=== PATIENT | male | born 1945 | race Caucasian/White ===

== ENCOUNTER 2020-09-22 08:11 | Emergency (ER) | payer MEDICARE, MEDICAID ==
--- NOTE | 2020-09-22 10:24 | EDM.PDOC ---
ED HPI GENERAL MEDICAL PROBLEM - General Chief Complaint: Respiratory Problem Stated Complaint: +COVID Time Seen by Provider: 09/22/20 09:37 Source of Information: Reports: Patient, RN History Limitations: Reports: No Limitations - History of Present Illness INITIAL COMMENTS - FREE TEXT/NARRATIVE: Pt here from [facility] to evaluate for hypoxia. Pt is day 10 post COVID. He was started on dexamethasone at the [facility]. He refused to leave the oxygen on at the home. He was sent her for evaluation as he continues to be a code 1. His saturations were reported to be in the high 70-low 80's without oxygen on. He does report SOB without it but states that he feels better with it on. PT is alert and did recognize this provider by name when I entered the room. He admits that he does not like the oxygen on and does not like anything touching his face. Denies nausea or diarrhea. States that his appetite has been down. Occasional cough but he states that it is nonproductive. Onset: Gradual Location: Reports: Chest Worsens with: Reports: Movement - Related Data Allergies Allergy/AdvReac Type Severity Reaction Status Date / Time memantine [From Namenda] Allergy Unknown Other Verified 09/22/20 10:27 Home Meds: Home Meds Acetaminophen 650 mg PO Q4HR PRN 09/22/20 [History] Carboxymethylcellulose Sodium [Artificial Tears] 1 drop OP BID 09/22/20 [History] Cholecalciferol (Vitamin D3) [Vitamin D3] 1,000 units PO DAILY 09/22/20 [History] FLUoxetine [PROzac] 60 mg PO DAILY 09/22/20 [History] Gabapentin [Neurontin] 300 mg PO TID 09/22/20 [History] Galantamine [Razadyne] 4 mg PO BID 09/22/20 [History] Loratadine [Claritin] 10 mg PO DAILY 09/22/20 [History] Mag Hydrox/Aluminum Hyd/Simeth [Mylanta Maximum Strength Liq] 10 - 20 ml PO DAILY PRN 09/22/20 [History] Multivitamin [Multivitamins] 1 tab PO DAILY 09/22/20 [History] Nystatin [Nystatin Crm] 15 gm TOP DAILY 09/22/20 [History] OLANZapine [ZyPREXA] 10 mg PO DAILY 09/22/20 [History] Sennosides/Docusate Sodium [Docusate Sodium-Sennosides Tab] 1 each PO DAILY 09/22/20 [History] Tamsulosin HCl [Flomax] 0.4 mg PO DAILY 09/22/20 [History] Triamcinolone Acetonide [Triamcinolone Acetonide 0.1% Crm] 1 applic TOP DAILY 09/22/20 [History] dexAMETHasone [Dexamethasone] 6 mg PO DAILY 09/22/20 [History] diphenhydrAMINE/Zinc Acetate [Benadryl Itch Stopping Crm] 1 applic TP DAILY 09/22/20 [History] Past Medical History - Infectious Disease History Infectious Disease History: Reports: MRSA Social & Family History - Caffeine Use Caffeine Use: Reports: Coffee - Recreational Drug Use Recreational Drug Use: No - Living Situation & Occupation Living situation: Reports: Extended Care Facility Occupation: Retired ED ROS GENERAL - Review of Systems Review Of Systems: See Below Constitutional: Reports: Weakness, Decreased Appetite. Denies: Fever, Chills HEENT: Reports: No Symptoms Respiratory: Reports: Shortness of Breath, Cough. Denies: Sputum Cardiovascular: Reports: No Symptoms GI/Abdominal: Denies: Abdominal Pain, Diarrhea, Nausea Musculoskeletal: Reports: No Symptoms Skin: Reports: No Symptoms Neurological: Denies: Confusion Psychiatric: Denies: Anxiety ED EXAM, GENERAL - Physical Exam Exam: See Below Exam Limited By: No Limitations General Appearance: Alert, WD/WN, Mild Distress Ears: Normal External Exam, Normal Canal Throat/Mouth: Normal Inspection, Normal Oropharynx, No Airway Compromise Head: Atraumatic, Normocephalic Neck: Normal Inspection, Supple, Non-Tender Respiratory/Chest: Decreased Breath Sounds (decreased to bases bilaterally. no rales noted at this time. ). No: Wheezing Cardiovascular: Regular Rate, Rhythm, No Edema GI/Abdominal: Normal Bowel Sounds, Soft, Non-Tender Back Exam: Normal Inspection Extremities: Normal Inspection, No Pedal Edema, Normal Capillary Refill Neurological: Alert, Oriented Skin Exam: Warm, Dry, Intact Course - Vital Signs Last Recorded V/S: Last Vital Signs Temp 97.3 F 09/22/20 09:20 Pulse 77 09/22/20 09:47 Resp 38 H 09/22/20 09:47 BP 98/80 09/22/20 09:47 Pulse Ox 91 L 09/22/20 09:47 - Orders/Labs/Meds Orders: Active Orders 24 hr Category Date Time Status Chest 2V [CR] Stat Exams 09/22/20 08:54 Taken Labs: Laboratory Tests 09/22/20 09/22/20 09/22/20 Range/Units 09:11 09:11 09:11 WBC 7.3 (5.0-10.0) 10^3/uL RBC 4.38 L (4.50-6.00) 10^6/uL Hgb 13.8 L (14.0-18.0) g/dL Hct 40.1 (40.0-54.0) % MCV 91.6 (82.0-94.0) fL MCH 31.5 (27.0-32.0) pg MCHC 34.4 (33.0-38.0) g/dL RDW Coeff of Rogelio 13.3 (11.0-15.0) % Plt Count 250 (150-400) 10^3/uL Neut % (Auto) 84.3 (35-85) % Lymph % (Auto) 7.7 L (10-55) % Doddridge % (Auto) 7.8 (0-16) % Eos % (Auto) 0.1 (0-5) % Baso % (Auto) 0.1 (0-3) % Neut # (Auto) 6.16 (1.80-7.00) 10^3/uL Lymph # (Auto) 0.56 L (1.00-4.80) 10^3/uL Dod[place]idge # (Auto) 0.57 (0.00-0.80) 10^3/uL Eos # (Auto) 0.01 (0.00-0.45) 10^3/uL Baso # (Auto) 0.01 10^3/uL PT 10.9 (9.7-12.3) SEC INR 1.08 (0.92-1.18) D-Dimer, Quantitative 1.33 H (0.00-0.50) Sodium 140 (136-145) mEq/L Potassium 4.2 (3.5-5.0) mEq/L Chloride 104 (98-106) mEq/L Carbon Dioxide 23 (21-32) mmol/L BUN 48 H D (7-18) mg/dL Creatinine 1.7 H (0.7-1.3) mg/dL Est Cr Clr Drug Dosing 41.84 mL/min Estimated GFR (MDRD) 40 L (>=60) mL/min Glucose 107 H (75-99) mg/dL Lactic Acid (0.4-2.0) mmol/L Calcium 8.4 (8.4-10.1) mg/dL Total Bilirubin 0.6 (0.0-1.0) mg/dL AST 54 H (15-37) U/L ALT 34 (12-78) U/L Alkaline Phosphatase 77 (46-116) U/L Creatine Kinase 310 H (35-232) U/L Troponin I 0.025 (0.00-0.06) ng/mL NT-Pro-B Natriuret Pep 968 (0-1000) pg/mL Total Protein 7.4 (6.4-8.2) g/dL Albumin 2.6 L (3.4-5.0) g/dL 09/22/20 Range/Units 09:11 WBC (5.0-10.0) 10^3/uL RBC (4.50-6.00) 10^6/uL Hgb (14.0-18.0) g/dL Hct (40.0-54.0) % MCV (82.0-94.0) fL MCH (27.0-32.0) pg MCHC (33.0-38.0) g/dL RDW Coeff of Rogelio (11.0-15.0) % Plt Count (150-400) 10^3/uL Neut % (Auto) (35-85) % Lymph % (Auto) (10-55) % Doddridge % (Auto) (0-16) % Eos % (Auto) (0-5) % Baso % (Auto) (0-3) % Neut # (Auto) (1.80-7.00) 10^3/uL Lymph # (Auto) (1.00-4.80) 10^3/uL Doddridge # (Auto) (0.00-0.80) 10^3/uL Eos # (Auto) (0.00-0.45) 10^3/uL Baso # (Auto) 10^3/uL PT (9.7-12.3) SEC INR (0.92-1.18) D-Dimer, Quantitative (0.00-0.50) Sodium (136-145) mEq/L Potassium (3.5-5.0) mEq/L Chloride (98-106) mEq/L Carbon Dioxide (21-32) mmol/L BUN (7-18) mg/dL Creatinine (0.7-1.3) mg/dL Est Cr Clr Drug Dosing mL/min Estimated GFR (MDRD) (>=60) mL/min Glucose (75-99) mg/dL Lactic Acid 1.1 (0.4-2.0) mmol/L Calcium (8.4-10.1) mg/dL Total Bilirubin (0.0-1.0) mg/dL AST (15-37) U/L ALT (12-78) U/L Alkaline Phosphatase (46-116) U/L Creatine Kinase (35-232) U/L Troponin I (0.00-0.06) ng/mL NT-Pro-B Natriuret Pep (0-1000) pg/mL Total Protein (6.4-8.2) g/dL Albumin (3.4-5.0) g/dL - Re-Assessments/Exams Free Text/Narrative Re-Assessment/Exam: 09/22/[address] Sharan-Dr. Etienne discussed pt with Bob at the [facility]. Discussed that we do not have bed capacity at this time to admit the pt and that he would be able to get oxygen at the [facility] and monitored there. He has been started on dexamethasone and no other treatment is recommended at this time as he is over 10 days positive. Will transfer back to the [facility] on 15 liter NR. Departure - Departure Time of Disposition: 10:25 Disposition: Home, Self-Care 01 Condition: Fair Clinical Impression: COVID-19, Hypoxia - Discharge Information *PRESCRIPTION DRUG MONITORING PROGRAM REVIEWED*: Not Applicable *COPY OF PRESCRIPTION DRUG MONITORING REPORT IN PATIENT SEVERIANO: Not Applicable Instructions: COVID-19 Frequently Asked Questions Referrals: Samantha Rawls PA-C [Primary Care Provider] - Forms: ED Department Discharge Additional Instructions: Must wear oxygen to keep sats above 90%. Currently on non rebreather at 15 liters. Can wean oxygen down as tolerated. continue the dexamethasone that was started yesterday PUSH oral fluids as much as possible diet as tolerated Sepsis Event Note (ED) - Evaluation Sepsis Screening Result: No Definite Risk - Problem List & Annotations (1) COVID-19 SNOMED Code(s): 627381159 Code(s): U07.1 - COVID-19 Status: Acute Priority: High (2) Hypoxia SNOMED Code(s): 876453902 Code(s): R09.02 - HYPOXEMIA Status: Acute Priority: High - Problem List Review Problem List Initiated/Reviewed/Updated: Yes - My Orders Last 24 Hours: My Active Orders 09/22/20 08:54 Chest 2V [CR] Stat - Assessment/Plan Last 24 Hours: My Active Orders 09/22/20 08:54 Chest 2V [CR] Stat
== END 2020-09-22 11:00 | disposition home or self-care (01) ==
LOC: CC.ED 08:11
DX: U07.1 COVID-19 (principal); R09.02 Hypoxemia; Z88.8 Allergy status to other drugs, medicaments and biological substances; Z79.899 Other long term (current) drug therapy; R06.02 Shortness of breath
CPT/HCPCS: 36415; 71046; 80053; 82550; 83605; 83880; 84484; 85025; 85379; 85610; 93005; 93010; 99284; 99285-25